=== PATIENT | female | born 1985 | race African-American/Black ===

== ENCOUNTER 2017-05-02 12:40 | Emergency (ER) | payer OTHER ==
[~2017-05-02] VITALS: Ht 162.6 cm; Wt 116.0 kg
[~2017-05-02 12:40] MED LIST: AMLO5TAB22 PO; ATOR20TA PO; LISI-360 PO; METO100T PO; RIVA20 PO; [UNRECOGNIZED DRUG - CODE] IM
[2017-05-02 12:41] VITALS: BP 180/95; PULSE 94; RESP 16; TEMP 98.3; O2SAT 100
[2017-05-02] MEDS ORDERED: IOHEXOL 350 MG/ML 10 ML VIAL (for RAD DIAG) IVCONTRAST ONE (12:41)
[2017-05-02 13:34] LABS: BILIRUBIN, URINE NEG (NEG); BLOOD, URINE NEG (NEG); GLUCOSE,URINE NEG (NEG); KETONE, URINE NEG (NEG); MUCUS URINE FEW /lpf (OCC); NITRITE,URINE NEG (NEG); PH, URINE 6.5 (5.0-8.5); SQUAMOUS EPITHELIAL CELL URINE 2 /hpf (0-5); URINE COLOR LIGHT-YELLOW (YELLW/STRAW); URINE LEUKOCYTE ESTERASE NEG (NEG)
--- NOTE | 2017-05-02 13:41 | RADRPT ---
EXAM DATE/TIME: 05/02/2017 13:17 [facility] COMPARISON: No previous studies available for comparison. INDICATIONS : Right side chest pains x2 days prior CABG. MEDICAL HISTORY : Myocardial infarction. SURGICAL HISTORY : CABG. ENCOUNTER: Initial ACUITY: 2 days PAIN SCORE: 8/10 LOCATION: Bilateral chest FINDINGS: There is evidence of prior median sternotomy cardiac surgery with borderline left ventricular cardiom egaly and normal vascularity. Some minimal curvilinear linear scarring is noted in the peripheral lef t midlung field. There are no consolidated infiltrates. CONCLUSION: Prior median sternotomy probable cardiac surgery compensated left ventricular cardiomegaly and scarri ng in the left midlung field. No consolidated acute process and no pneumothorax. Vish Oseguera MD on May 02, 2017 at 13:37 Board Certified Radiologist. This report was verified electronically.
[2017-05-02 14:19] LABS: BICARBONATE 28.7 MEQ/L (21.0-32.0); BLOOD UREA NITROGEN 10 MG/DL (7-18); CALCIUM 9.2 MG/DL (8.5-10.1); CHLORIDE 101 MEQ/L (98-107); CREATININE 0.78 MG/DL (0.50-1.00); GLOMERULAR FILTRATION RATE 105 ML/MIN (>89); GLUCOSE,RANDOM 81 MG/DL (74-106); MAGNESIUM 1.9 MG/DL (1.5-2.5); SODIUM (NA) 133 MEQ/L (136-145)
[2017-05-02 14:24] LABS: TROPONIN I LESS THAN 0.02 NG/ML (0.02-0.05)
[2017-05-02 16:29] VITALS: BP 174/107; PULSE 94; RESP 22; O2SAT 99
[2017-05-02] MEDS ORDERED: CARV6.252 PO (16:32)
[2017-05-02] MEDS ORDERED: ATOR40TA16 PO (16:32)
[2017-05-02] MEDS ORDERED: HYDR12.57 PO (16:32)
[2017-05-02] MEDS ORDERED: AMLO10TA2 PO (16:32)
[2017-05-02 17:07] LABS: BASOPHIL # 0.1 TH/MM3 (0-0.2); BASOPHIL % 0.8 % (0.0-2.0); EOSINOPHIL # 0.1 TH/MM3 (0-0.4); HEMATOCRIT 42.6 % (35.0-46.0); HEMOGLOBIN 14.2 GM/DL (11.6-15.3); LYMPH % 24.6 % (9.0-44.0); LYMPHOCYTE # 1.9 TH/MM3 (1.0-4.8); MEAN CELL VOLUME 85.1 FL (80.0-100.0); MEAN CORPUSCULAR HEMOGLOBIN 28.4 PG (27.0-34.0); MEAN CORPUSCULAR HGB CONC 33.4 % (32.0-36.0); MEAN PLATELET VOLUME 9.2 FL (7.0-11.0); MONO % 8.8 % (0.0-8.0); MONOCYTE # 0.7 TH/MM3 (0-0.9); NEUT % 64.8 % (16.0-70.0); PLATELET COUNT 275 TH/MM3 (150-450); RED CELL DISTRIBUTION WIDTH 14.3 % (11.6-17.2); WHITE BLOOD COUNT 7.7 TH/MM3 (4.0-11.0)
[2017-05-02 17:58] LABS: PROTHROMBIN TIME - PATIENT 10.5 SEC (9.8-11.6)
[2017-05-02 17:59] LABS: D-DIMER 0.56 MG/L FEU (0.00-0.50)
--- NOTE | 2017-05-02 18:41 | RADRPT ---
EXAM DATE/TIME: 05/02/2017 18:19 [facility] COMPARISON: No previous studies available for comparison. INDICATIONS : Short of breath. IV CONTRAST: 74 cc Omnipaque 350 (iohexol) IV RADIATION DOSE: 23.16 CTDIvol (mGy) MEDICAL HISTORY : Hypertension. SURGICAL HISTORY : Aortic Disection. ENCOUNTER: Initial ACUITY: 1 day PAIN SCALE: 4/10 LOCATION: Bilateral chest TECHNIQUE: Volumetric scanning of the chest was performed using a pulmonary embolism protocol MIP images were re constructed. Using automated exposure control and adjustment of the mA and/or kV according to patien t size, radiation dose was kept as low as reasonably achievable to obtain optimal diagnostic quality images. DICOM format image data is available electronically for review and comparison. Follow-up recommendations for detected pulmonary nodules are based at a minimum on nodule size and pa tient risk factors according to Fleischner Society Guidelines. FINDINGS: There is evidence of an aortic dissection extending from the mid descending thoracic aorta inferiorly into the abdominal aorta. The full extent of this dissection is not confirmed on this examination. N o pulmonary embolism is noted. The heart is enlarged. Scattered atelectasis and/or fibrotic scarring is noted bilaterally. No pulmonary nodule or mass is noted. No alveolar consolidation to suggest bact erial pneumonia is noted. No pulmonary edema is noted. Scoliosis and degenerative changes involving t he thoracic spine are noted. CONCLUSION: 1. Aortic dissection extending from the mid descending thoracic aorta inferiorly into the abdominal a patrick which is not completely evaluated on this examination. 2. Cardiomegaly. 3. No evidence of pulmonary embolism. 4. Scattered atelectasis and/or fibrotic scarring bilaterally. 5. Scoliosis and degenerative changes involving the thoracic spine. Destin Kitchen MD on May 02, 2017 at 18:33 Board Certified Radiologist. This report was verified electronically.
--- NOTE | 2017-05-02 19:09 | PD ---
Physical Exam Date Seen by Provider: May 02, 2017 Time Seen by Provider: 19:07 Narrative The patient is a 32-year-old female was initially evaluated by the previous physician, Dr. Juárez. Please refer to the initial history, physical, diagnostic evaluation, and treatment modality plan. The patient was signed out at 7 PM with records from [facility] pending to compare CT results for known aneurysm with repair 2 years ago. Data Data Last Documented VS Vital Signs Date Time Temp Pulse Resp B/P (MAP) Pulse Ox O2 Delivery O2 Flow Rate FiO2 05/02/17 19:33 89 20 149/72 (97) 100 Room Air 05/02/17 12:41 98.3 Orders Orders Electrocardiogram (05/02/17 12:47) Basic Metabolic Panel (Bmp) (05/02/17 12:47) Ckmb (Isoenzyme) Profile (05/02/17 12:47) Complete Blood Count With Diff (05/02/17 12:47) D-Dimer (05/02/17 12:47) Magnesium (Mg) (05/02/17 12:47) Prothrombin Time / Inr (Pt) (05/02/17 12:47) Act Partial Throm Time (Ptt) (05/02/17 12:47) Troponin I (05/02/17 12:47) Chest, Pa & Lat (05/02/17 12:47) Urinalysis - C+S If Indicated (05/02/17 12:47) Ed Urine Pregnancytest Poc (05/02/17 12:47) CKMB (05/02/17 13:38) CKMB% (05/02/17 13:38) Ct Pulmonary Angiogram (05/02/17 16:40) Iohexol 350 Inj (Omnipaque 350 Inj) (05/02/17 12:41) Labs Laboratory Tests Test 05/02/17 13:00 05/02/17 13:38 05/02/17 16:24 05/02/17 17:20 Urine Color LIGHT-YELLOW Urine Turbidity CLEAR Urine pH 6.5 Urine Specific [place] 1.015 Urine Protein NEG mg/dL Urine Glucose (UA) NEG mg/dL Urine Ketones NEG mg/dL Urine Occult Blood NEG Urine Nitrite NEG Urine Bilirubin NEG Urine Urobilinogen LESS THAN 2.0 MG/DL Urine Leukocyte Esterase NEG Urine RBC LESS THAN 1 /hpf Urine WBC 1 /hpf Urine Squamous Epithelial Cells 2 /hpf Urine Mucus FEW /lpf Microscopic Urinalysis Comment CULT NOT INDICATED Blood Urea Nitrogen 10 MG/DL Creatinine 0.78 MG/DL Random Glucose 81 MG/DL Calcium Level 9.2 MG/DL Magnesium Level 1.9 MG/DL Sodium Level 133 MEQ/L Potassium Level 4.3 MEQ/L Chloride Level 101 MEQ/L Carbon Dioxide Level 28.7 MEQ/L Anion Gap 3 MEQ/L Estimat Glomerular Filtration Rate 105 ML/MIN Total Creatine Kinase 249 U/L Creatine Kinase MB 1.2 NG/ML Creatine Kinase MB % 0.5 % Troponin I LESS THAN 0.02 NG/ML White Blood Count 7.7 TH/MM3 Red Blood Count 5.00 MIL/MM3 Hemoglobin 14.2 GM/DL Hematocrit 42.6 % Mean Corpuscular Volume 85.1 FL Mean Corpuscular Hemoglobin 28.4 PG Mean Corpuscular Hemoglobin Concent 33.4 % Red Cell Distribution Width 14.3 % Platelet Count 275 TH/MM3 Mean Platelet Volume 9.2 FL Neutrophils (%) (Auto) 64.8 % Lymphocytes (%) (Auto) 24.6 % Monocytes (%) (Auto) 8.8 % Eosinophils (%) (Auto) 1.0 % Basophils (%) (Auto) 0.8 % Neutrophils # (Auto) 5.0 TH/MM3 Lymphocytes # (Auto) 1.9 TH/MM3 Monocytes # (Auto) 0.7 TH/MM3 Eosinophils # (Auto) 0.1 TH/MM3 Basophils # (Auto) 0.1 TH/MM3 CBC Comment DIFF FINAL Differential Comment Prothrombin Time 10.5 SEC Prothromb Time International Ratio 1.0 RATIO Activated Partial Thromboplast Time 29.6 SEC D-Dimer Quantitative (PE/DVT) 0.56 MG/L FEU [facility] Medical Record Reviewed: Yes Supervised Visit with SNEHA: No Interpretation(s) Laboratory Tests Test 05/02/17 13:00 05/02/17 13:38 05/02/17 16:24 05/02/17 17:20 Urine Color LIGHT-YELLOW Urine Turbidity CLEAR Urine pH 6.5 Urine Specific [place] 1.015 Urine Protein NEG mg/dL Urine Glucose (UA) NEG mg/dL Urine Ketones NEG mg/dL Urine Occult Blood NEG Urine Nitrite NEG Urine Bilirubin NEG Urine Urobilinogen LESS THAN 2.0 MG/DL Urine Leukocyte Esterase NEG Urine RBC LESS THAN 1 /hpf Urine WBC 1 /hpf Urine Squamous Epithelial Cells 2 /hpf Urine Mucus FEW /lpf Microscopic Urinalysis Comment CULT NOT INDICATED Blood Urea Nitrogen 10 MG/DL Creatinine 0.78 MG/DL Random Glucose 81 MG/DL Calcium Level 9.2 MG/DL Magnesium Level 1.9 MG/DL Sodium Level 133 MEQ/L Potassium Level 4.3 MEQ/L Chloride Level 101 MEQ/L Carbon Dioxide Level 28.7 MEQ/L Anion Gap 3 MEQ/L Estimat Glomerular Filtration Rate 105 ML/MIN Total Creatine Kinase 249 U/L Creatine Kinase MB 1.2 NG/ML Creatine Kinase MB % 0.5 % Troponin I LESS THAN 0.02 NG/ML White Blood Count 7.7 TH/MM3 Red Blood Count 5.00 MIL/MM3 Hemoglobin 14.2 GM/DL Hematocrit 42.6 % Mean Corpuscular Volume 85.1 FL Mean Corpuscular Hemoglobin 28.4 PG Mean Corpuscular Hemoglobin Concent 33.4 % Red Cell Distribution Width 14.3 % Platelet Count 275 TH/MM3 Mean Platelet Volume 9.2 FL Neutrophils (%) (Auto) 64.8 % Lymphocytes (%) (Auto) 24.6 % Monocytes (%) (Auto) 8.8 % Eosinophils (%) (Auto) 1.0 % Basophils (%) (Auto) 0.8 % Neutrophils # (Auto) 5.0 TH/MM3 Lymphocytes # (Auto) 1.9 TH/MM3 Monocytes # (Auto) 0.7 TH/MM3 Eosinophils # (Auto) 0.1 TH/MM3 Basophils # (Auto) 0.1 TH/MM3 CBC Comment DIFF FINAL Differential Comment Prothrombin Time 10.5 SEC Prothromb Time International Ratio 1.0 RATIO Activated Partial Thromboplast Time 29.6 SEC D-Dimer Quantitative (PE/DVT) 0.56 MG/L FEU Last Impressions CT Angiography 05/02/17 1640 Signed Impressions: Service Date/Time: Tuesday, May 02, 2017 18:19 - CONCLUSION: 1. Aortic dissection extending from the mid descending thoracic aorta inferiorly into the abdominal aorta which is not completely evaluated on this examination. 2. Cardiomegaly. 3. No evidence of pulmonary embolism. 4. Scattered atelectasis and/or fibrotic scarring bilaterally. 5. Scoliosis and degenerative changes involving the thoracic spine. Destin Kitchen MD Chest X-Ray 05/02/17 1247 Signed Impressions: Service Date/Time: Tuesday, May 02, 2017 13:17 - CONCLUSION: Prior median sternotomy probable cardiac surgery compensated left ventricular cardiomegaly and scarring in the left midlung field. No consolidated acute process and no pneumothorax. Vish Oseguera MD Differential Diagnosis Differential diagnosis includes aortic aneurysm, pulmonary embolism, pneumonia, pleurisy, GERD, esophageal spasm, ACS, dissection. Narrative Course The patient is a 32-year-old female who was initially evaluated by the previous physician. Please refer to initial history, physical, diagnostic evaluation, and treatment modality plan. The patient was signed out at [address] results from [facility] pending to compare CT results for known aortic aneurysm. 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 The false lumen is located on the right side of the aorta. The right renal artery arises from the false lumen. The mesenteric arteries and left renal artery arises no true lumen. No acute findings. The patient was reevaluated at 10:30 PM, her pain had significantly improved. She had similar pain previous with a pulmonary embolism, however, or dissection pain was different. She has a follow-up appointment in June 2017 at [facility] in [place], [place], for reevaluation of her dissection. Patient be discharged home with pain medications. She will be provided a copy of her CT results and lab results at discharge. Return if symptoms worsen or progress. Diagnosis Primary Impression: Chest pain Qualified Codes: R07.9 - Chest pain, unspecified Patient Instructions: General Instructions Additional Instruction: Medications as directed. Please provide the patient copy of her CT results and lab results at discharge. Follow-up with her primary physician. Return if symptoms worsen or progress. Med/Other Pt SpecificInfo: Prescription(s) given Scripts Hydrocodone-Acetaminophen ([place]) 5 Mg-325 Mg Tab 1 TAB PO Q6H Y for PAIN, #12 TAB 0 Refills Prov: Aquiles Dominique MD 05/02/17 Disposition: 01 DISCHARGE HOME Condition: Stable Aqulies Dominique MD May 02, 2017 19:09
--- NOTE | 2017-05-02 19:18 | PD ---
HPI Chief Complaint: Chest Pain Time Seen by Provider: 16:04 Travel History International Travel<30 days: No Contact w/Intl Traveler<30days: No Traveled to known affect area: No History of Present Illness HPI Patient is a 32-year-old female who comes in complaining of right-sided chest pain. She says the pain started last night, but got worse today. She says the pain radiates down her right arm. She has history of PE as well as an aortic aneurysm that was repaired 2 years ago. She is currently not on blood thinners due to insurance issues. She says this feels like in the past when she had a PE. She does report some shortness of breath. She says the pain has eased. She denies nausea or vomiting. She says she called her doctor, who told her to come into the emergency department. She normally follows with [facility]. The pain seems to have improved on its own. PFSH Past Medical History Asthma: Yes High Cholesterol: Yes Hypertension: Yes ?: Not : 1 Para: 0 Past Surgical History Cardiac Surgery: Yes (aortic disection ) Social History Alcohol Use: No Tobacco Use: No Substance Use: No Allergies-Medications (Allergen,Severity, Reaction): Coded Allergies: banana (Unverified Allergy, Severe, Rash, 05/02/17) lisinopril (Verified Allergy, Severe, Edema, 05/02/17) lips swelling strawberry (Unverified Allergy, Severe, Rash, 05/02/17) Reported Meds & Prescriptions Reported Meds & Active Scripts Active Reported Amlodipine (Amlodipine Besylate) 10 Mg Tab 10 Mg PO DAILY Hydrochlorothiazide 12.5 Mg Cap 12.5 Mg PO DAILY Carvedilol 6.25 Mg Tab 6.25 Mg PO BID Atorvastatin (Atorvastatin Calcium) 40 Mg Tab 40 Mg PO HS Review of Systems Except as stated in HPI: all other systems reviewed are Neg General / Constitutional: No: Fever, Chills HENT: No: Headaches, Lightheadedness Cardiovascular: Positive: Chest Pain or Discomfort Respiratory: Positive: Shortness of Breath Gastrointestinal: No: Nausea, Vomiting Genitourinary: No: Dysuria Musculoskeletal: Positive: Myalgias, No: Edema Skin: No Rash, No Change in Pigmentation Neurologic: No: Weakness, Dizziness Physical Exam Narrative GENERAL: Awake and alert, in no acute distress. SKIN: Focused skin assessment warm/dry. HEAD: Atraumatic. Normocephalic. EYES: Pupils equal and round. No scleral icterus. Extraocular movements intact. ENT: Mucous membranes pink and moist. NECK: Trachea midline. No JVD. CARDIOVASCULAR: Regular rate and rhythm. No murmur appreciated. RESPIRATORY: No accessory muscle use. Clear to auscultation. Breath sounds equal bilaterally. GASTROINTESTINAL: Abdomen soft, non-tender, nondistended. MUSCULOSKELETAL: No obvious deformities. No clubbing. No cyanosis. No edema. NEUROLOGICAL: Awake and alert. No obvious cranial nerve deficits. Motor grossly within normal limits. Normal speech. PSYCHIATRIC: Appropriate mood and affect; insight and judgment normal. Data Data Last Documented VS Vital Signs Date Time Temp Pulse Resp B/P (MAP) Pulse Ox O2 Delivery O2 Flow Rate FiO2 05/02/17 16:29 94 22 174/107 (129) 99 Room Air 05/02/17 12:41 98.3 Orders Orders Electrocardiogram (05/02/17 12:47) Basic Metabolic Panel (Bmp) (05/02/17 12:47) Ckmb (Isoenzyme) Profile (05/02/17 12:47) Complete Blood Count With Diff (05/02/17 12:47) D-Dimer (05/02/17 12:47) Magnesium (Mg) (05/02/17 12:47) Prothrombin Time / Inr (Pt) (05/02/17 12:47) Act Partial Throm Time (Ptt) (05/02/17 12:47) Troponin I (05/02/17 12:47) Chest, Pa & Lat (05/02/17 12:47) Urinalysis - C+S If Indicated (05/02/17 12:47) Ed Urine Pregnancytest Poc (05/02/17 12:47) CKMB (05/02/17 13:38) CKMB% (05/02/17 13:38) Ct Pulmonary Angiogram (05/02/17 16:40) Iohexol 350 Inj (Omnipaque 350 Inj) (05/02/17 12:41) Labs Laboratory Tests Test 05/02/17 13:00 05/02/17 13:38 05/02/17 16:24 05/02/17 17:20 Urine Color LIGHT-YELLOW Urine Turbidity CLEAR Urine pH 6.5 Urine Specific [place] 1.015 Urine Protein NEG mg/dL Urine Glucose (UA) NEG mg/dL Urine Ketones NEG mg/dL Urine Occult Blood NEG Urine Nitrite NEG Urine Bilirubin NEG Urine Urobilinogen LESS THAN 2.0 MG/DL Urine Leukocyte Esterase NEG Urine RBC LESS THAN 1 /hpf Urine WBC 1 /hpf Urine Squamous Epithelial Cells 2 /hpf Urine Mucus FEW /lpf Microscopic Urinalysis Comment CULT NOT INDICATED Blood Urea Nitrogen 10 MG/DL Creatinine 0.78 MG/DL Random Glucose 81 MG/DL Calcium Level 9.2 MG/DL Magnesium Level 1.9 MG/DL Sodium Level 133 MEQ/L Potassium Level 4.3 MEQ/L Chloride Level 101 MEQ/L Carbon Dioxide Level 28.7 MEQ/L Anion Gap 3 MEQ/L Estimat Glomerular Filtration Rate 105 ML/MIN Total Creatine Kinase 249 U/L Creatine Kinase MB 1.2 NG/ML Creatine Kinase MB % 0.5 % Troponin I LESS THAN 0.02 NG/ML White Blood Count 7.7 TH/MM3 Red Blood Count 5.00 MIL/MM3 Hemoglobin 14.2 GM/DL Hematocrit 42.6 % Mean Corpuscular Volume 85.1 FL Mean Corpuscular Hemoglobin 28.4 PG Mean Corpuscular Hemoglobin Concent 33.4 % Red Cell Distribution Width 14.3 % Platelet Count 275 TH/MM3 Mean Platelet Volume 9.2 FL Neutrophils (%) (Auto) 64.8 % Lymphocytes (%) (Auto) 24.6 % Monocytes (%) (Auto) 8.8 % Eosinophils (%) (Auto) 1.0 % Basophils (%) (Auto) 0.8 % Neutrophils # (Auto) 5.0 TH/MM3 Lymphocytes # (Auto) 1.9 TH/MM3 Monocytes # (Auto) 0.7 TH/MM3 Eosinophils # (Auto) 0.1 TH/MM3 Basophils # (Auto) 0.1 TH/MM3 CBC Comment DIFF FINAL Differential Comment Prothrombin Time 10.5 SEC Prothromb Time International Ratio 1.0 RATIO Activated Partial Thromboplast Time 29.6 SEC D-Dimer Quantitative (PE/DVT) 0.56 MG/L FEU [facility] Medical Decision Making Medical Screen Exam Complete: Yes Emergency Medical Condition: Yes Medical Record Reviewed: Yes Interpretation(s) ECG shows normal sinus rhythm, no ST elevation or depression Differential Diagnosis PE versus ACS versus musculoskeletal pain Narrative Course Patient is a 32-year-old female who comes in complaining of right-sided chest pain radiating to her right arm. Exam shows tenderness to palpation of the right trapezius muscle. I have established, labs sent. Labs show slight elevation in d-dimer to 0.56. Patient states she does not need pain medicine at this time. CTA performed shows no evidence of PE, but the aortic aneurysm is present. There are no prior studies done here to compare to, therefore it is not clear if anything his change of the aneurysm. Records requested from [facility]. Patient signed out to Dr. Dominique to compare CAT scan results and ensure there is no change to the aneurysm. Last [address] Angiography 05/02/17 1640 Signed Impressions: Service Date/Time: Tuesday, May 02, 2017 18:19 - CONCLUSION: 1. Aortic dissection extending from the mid descending thoracic aorta inferiorly into the abdominal aorta which is not completely evaluated on this examination. 2. Cardiomegaly. 3. No evidence of pulmonary embolism. 4. Scattered atelectasis and/or fibrotic scarring bilaterally. 5. Scoliosis and degenerative changes involving the thoracic spine. Destin Kitchen MD Chest X-Ray 05/02/17 1247 Signed Impressions: Service Date/Time: Tuesday, May 02, 2017 13:17 - CONCLUSION: Prior median sternotomy probable cardiac surgery compensated left ventricular cardiomegaly and scarring in the left midlung field. No consolidated acute process and no pneumothorax. Vish Oseguera MD Diagnosis Primary Impression: Chest pain Qualified Codes: R07.9 - Chest pain, unspecified Condition: Stable Estrella Mc MD May 02, 2017 19:18
[2017-05-02 19:33] VITALS: BP 149/72; PULSE 89; RESP 20; O2SAT 100
[2017-05-02] MEDS ORDERED: NORC5TAB PO (22:36)
[2017-05-02 22:59] VITALS: BP 166/100
--- NOTE | 2017-05-03 09:28 | EKG ---
Date Performed: 05/02/2017 Time Performed: 13:33:02 PTAGE: 32 years EKG: Sinus rhythm BORDERLINE RIGHT AXIS DEVIATION Possible ANTEROSEPTAL INFARCTION ABNORMAL ECG NO PREVIOUS TRACING DOCTOR: Alfredo Suarez Interpretating Date/Time 05/03/2017 09:25:12
== END 2017-05-02 23:07 | disposition home or self-care (01) ==
LOC: NEPE 12:40
DX: R07.9 Chest pain, unspecified (principal); R06.02 Shortness of breath; E78.00 Pure hypercholesterolemia, unspecified; I10 Essential (primary) hypertension; Z79.899 Other long term (current) drug therapy
CPT/HCPCS: 71046; 71275; 80048; 81001; 82550; 82552; 83735; 84484; 84703; 85025; 85379; 85610; 85730; 93005; 99285; Q9967